=== PATIENT | male | born 1950 | race Caucasian/White ===

== ENCOUNTER 2020-11-10 07:13 | Day surgery (SDC) | payer MEDICARE ==
[2020-11-03 17:30] LABS: BASOPHILS # (AUTO) 0.1 X10'3 (0-0.2); BASOPHILS % (AUTO) 1.1 % (0-1); EOSINOPHILS # (AUTO) 0.3 X10'3 (0-0.9); EOSINOPHILS % (AUTO) 2.7 % (0-6); LYMPHOCYTES # (AUTO) 2.4 X10'3 (1.1-4.8); LYMPHOCYTES % (AUTO) 24.6 % (21-51); MEAN CORPUSCULAR HEMOGLOBIN 30.2 PG (27.0-31.0); MEAN CORPUSCULAR HGB CONC 33.4 g/dL (33.0-36.5); MEAN CORPUSCULAR VOLUME 90.3 FL (78-98); MEAN PLATELET VOLUME 8.2 FL (7.4-10.4); MONOCYTES # (AUTO) 0.9 X10'3 (0-0.9); MONOCYTES % (AUTO) 8.8 % (2-12); NEUTROPHILS # (AUTO) 6.2 X10'3 (1.8-7.7); NEUTROPHILS % (AUTO) 62.8 % (42-75); PRE OP HEMATOCRIT 46.3 % (42.0-52.0); PRE OP HEMOGLOBIN 15.5 g/dL (14.0-17.9); PRE OP PLATELET COUNT 242 X10'3 (140-440); RED BLOOD COUNT 5.13 X10'6 (4.70-6.10); RED CELL DISTRIBUTION WIDTH 14.3 % (11.5-14.5)
[2020-11-03 17:31] LABS: ALBUMIN 3.9 G/DL (3.4-5.0); ALBUMIN/GLOBULIN RATIO 1.1 (1.1-1.5); ALKALINE PHOSPHATASE 78 IU/L (46-116); BLOOD UREA NITROGEN 23 MG/DL (7-18); BUN/CREATININE RATIO 17.2 (5.4-32.0); CALCIUM 8.6 MG/DL (8.5-10.1); CHLORIDE 108 MMOL/L (99-107); CREATININE 1.34 MG/DL (0.60-1.10); PRE OP ALT 32 U/L (30-65); PRE OP ANION GAP 11 (8-16); PRE OP AST 13 U/L (10-37); PRE OP BILIRUB, TOTAL 0.3 MG/DL (0.0-1.0); PRE OP GLUCOSE 143 MG/DL (70-104); PRE OP SODIUM 143 MMOL/L (135-145); TOTAL CARBON DIOXIDE 23.8 MMOL/L (24-32); TOTAL PROTEIN 7.6 G/DL (6.4-8.2); eGFR 53 ML/MIN
[~2020-11-10] VITALS: Ht 172.7 cm; Wt 101.7 kg
[~2020-11-10 07:13] MED LIST: ASPI-1265 PO; BUPIVAcaine/PF 2.5mg/ml (0.25%) 10ml vial ONE; LISI-232 PO; cefazolin/dext.iso 2gm/100ml IV ONE; famotidine 20mg tablet PO ONE; ringers solution, lacted 1,000 ML IV SCH
[2020-11-10] MEDS ORDERED: ringers solution, lacted 1,000 ML IV SCH (09:10)
[2020-11-10] MEDS ORDERED: meperidine/PF 25mg/ml syringe IV PRN ×3 (09:10)
[2020-11-10] MEDS ORDERED: ondansetron/PF 4mg/2ml inj IV PRN (09:10)
[2020-11-10] MEDS ORDERED: labetalol 20mg/4ml (5mg/ml) syringe IV PRN (09:10)
[2020-11-10] MEDS ORDERED: proCHLORperazine 10 MG/2 ml inj IV PRN (09:10)
[2020-11-10] MEDS ORDERED: hydrALAZINE 20mg/ml inj. IV PRN (09:10)
[2020-11-10] MEDS ORDERED: acetaminophen 1,000mg/100ml IV 100 ML IV PRN (09:10)
[2020-11-10] MEDS ORDERED: morphine 2 MG/ML inj. syringe IV PRN (09:10)
[2020-11-10] MEDS ORDERED: morphine 4 MG/ML inj SYRINge IV PRN (09:10)
[2020-11-10] MEDS ORDERED: LIDOcaine 0.5% (5mg/ml) 50ml vial ONE ×2 (09:56→10:09)
[2020-11-10] MEDS ORDERED: fentaNYL/PF 50MCG/1 ML 2ML syringe ONE (10:03)
[2020-11-10] MEDS ORDERED: midazolam 1 mg/ML 2ml injection ONE (10:03)
[2020-11-10] MEDS ORDERED: propofol inj 20 ML IV ONE (10:09)
[2020-11-10 10:42] VITALS: BP 145/72
--- NOTE | 2020-11-10 10:42 | NUR ---
ASSUME PT AWAKE ALERT VSS NO DISTRRESS DENIES PAIN +CMS TO RIGHT HAND. CONT TO MONITOR Addendum: 11/10/20 at 1109 by Ara Poe RN Amended: Links added.
[2020-11-10 10:52] VITALS: BP 140/70
[2020-11-10 11:02] VITALS: BP 125/79
[2020-11-10 11:10] VITALS: BP 149/70
--- NOTE | 2020-11-10 11:10 | NUR ---
PT AWAKE KRISSY PO'S DENIES PAIN, MEETS CRITERIA TO GO HOME, DC INSTR GIVEN NO ?'S OR CONCERNS. CALLED. Addendum: 11/10/20 at 1111 by Ara Poe RN Amended: Links added.
== END 2020-11-10 11:22 | disposition home or self-care (01) ==
LOC: PAS 07:13
PROVIDERS: ATTEND Orthopaedic Surgery Hand Surgery
DX: G56.01 Carpal tunnel syndrome, right upper limb (principal); E66.9 Obesity, unspecified; Z68.34 Body mass index [BMI] 34.0-34.9, adult; I10 Essential (primary) hypertension; Z20.822 Contact with and (suspected) exposure to COVID-19; Z79.899 Other long term (current) drug therapy; Z79.82 Long term (current) use of aspirin; Z98.890 Other specified postprocedural states; Z91.041 Radiographic dye allergy status; Z85.038 Personal history of other malignant neoplasm of large intestine; Z80.9 Family history of malignant neoplasm, unspecified
CPT/HCPCS: 36415; 64721; 80053; 82948; 85025; 93005; J2001; J2250; J2704; J3010; J3490; U0003; U0005; Z7506; Z7512; A4215; J7120